=== PATIENT | male | born 1950 | race Caucasian/White ===

== ENCOUNTER → 2016-05-19 | Outpatient (CLI) | payer BC | END | disposition home or self-care (01) | LOC: C.PATHSPEC 17:24 | PROVIDERS: ATTEND Urology | DX: Z00.00 Encounter for general adult medical examination without abnormal findings (principal); R31.29 Other microscopic hematuria; N35.9 Urethral stricture, unspecified ==

== ENCOUNTER 2019-11-07 08:35 | Observation (INO) ==
--- NOTE | 2019-10-05 15:59 | PAT Medication Instructions ---
Medication Instructions Date of Service October 05, 2019 Home Medications meloxicam 15 mg PO QAM pantoprazole 40 mg PO QAM rosuvastatin 10 mg PO QAM ASK your surgeon for instructions meloxicam 15 mg PO QAM Take morning of surgery With a small sip of water, OTHERWISE NOTHING TO EAT OR DRINK AFTER MIDNIGHT: pantoprazole 40 mg PO QAM rosuvastatin 10 mg PO QAM Other Notes If you have any questions please call us at [phone] or [phone] or [phone] or [phone]
--- NOTE | 2019-10-10 10:05 | Anesthesiology Consultation ---
Date of Service October 10, 2019 Assessment & Plan (1) Encounter for pre-operative examination: Patient reported to PAT RN that he traveled in [place], returning on 10[place]06. He and his drove there, stayed in a cabin, wore masks and frequently washed hands. Did go to grocery store once in [place]. Due to the [facility] guidelines that recommend self-quarantining for 14 days after travel to specific states (including [place]), surgery was postponed so that patient able to quarantine. COVID testing to be done prior to surgery. Chart Review Chart Review: Acceptable Risk for Surgery and Patient NOT seen in Pre Admission Testing History Surgery Operation Date: 10/24/19 09:50 Proposed Procedures p Right Total Knee Arthroplasty - Joaquin Stevenson MD Height/Weight Height: 5 ft 7 in Weight: 92.986 kg Allergies Allergy/AdvReac Type Severity Reaction Status Date / Time tetracycline Allergy Mild Rash Verified 10/02/19 08:57 Medications Home Medications Medication Instructions Recorded Confirmed Last Taken meloxicam 15 mg PO QAM 10/02/19 10/02/19 Unknown pantoprazole 40 mg PO QAM 10/02/19 10/02/19 Unknown rosuvastatin 10 mg PO QAM 10/02/19 10/02/19 Unknown Past Medical History Medical History GERD (gastroesophageal reflux disease) History of stomach ulcers Hyperlipidemia Osteoarthritis Past Surgical History Surgical History History of arthroscopy of right shoulder Hx of colonoscopy Hx of tonsillectomy Hx of urethral stricture repair Social History Smoking Status: Never smoker Do You Dip or Chew Tobacco: No Hx Alcohol Use: Yes Alcohol type: wine alcohol intake frequency: 3 or more drinks per day Hx Substance Use: No substance use type: does not use Testing Laboratory Results Blood Type A Positive 10/08/19 09:00 Antibody Screen NEGATIVE 10/08/19 09:00 10/08/19 WBC: 5.20 H/H: 13.8/40.7 PLATELETS: 198 SODIUM: 142 POTASSIUM: 4.0 CHLORIDE: 111 CO2: 26 BUN: 26 CREATININE: 0.78 GLUCOSE: 98 PT: 10.7 PTT: 26 INR: 1.0 Electrocardiogram Date: 10/09/19 Findings: + SB @ (52bpm with 1st degree AV block) Chest X-Ray Date: 10/08/19 Findings: + NAD
--- NOTE | 2019-10-30 16:24 | History & Physical Report ---
Date of Service October 30, 2019 Assessment & Plan (1) Right knee DJD: Postoperative prescriptions for Percocet and Coumadin will be provided at discharge from the hospital. Anticipate discharge to home with home health services. Preoperative lab work, EKG, and chest x-ray have already been obtained. He will obtain nasal swab testing for COVID-19 prior to surgery. The patient is currently asymptomatic of any COVID-19 symptoms. He is aware of the risks associated with surgical intervention and COVID-19. Medical clearance has already been obtained from Dr. Ren. He already has access to a walker and cane. PDMP was checked and no records were found. History of Present Illness Chief Complaint: Right knee pain Primary Care Provider: Slick Ren This 68-year-old white male presents today with a longstanding history of right knee pain ongoing for several years. He is scheduled to undergo a right knee total knee arthroplasty on 11/07/2019. He has He initially managed it well with oral anti-inflammatories and viscosupplementation injections. Over the last year, symptoms have become worse. He is now having difficulty with ambulating any distance. No numbness or tingling. Occasional effusions. No catching or locking. Pain is worse with weightbearing. It is affecting his ADLs. Preoperative imaging has been obtained. He was previously scheduled for this procedure on 10/24/2019, but had to delay due to some travel obligations. He states he was very careful during his travels and packed his own food and slept in a tent. He denies any known exposure. Allergies Allergy/AdvReac Type Severity Reaction Status Date / Time tetracycline Allergy Mild Rash Verified 10/02/19 08:57 Home Medications Home Medications Medication Instructions Recorded Confirmed Type meloxicam 15 mg PO QAM 10/02/19 10/02/19 History pantoprazole 40 mg PO QAM 10/02/19 10/02/19 History rosuvastatin 10 mg PO QAM 10/02/19 10/02/19 History Past Med/Surg History Medical History GERD (gastroesophageal reflux disease) History of stomach ulcers Hyperlipidemia Osteoarthritis Surgical History History of arthroscopy of right shoulder Hx of colonoscopy Hx of tonsillectomy Hx of urethral stricture repair Family History Other Cancer Heart disease Prostate cancer Vision abnormalities Social History Smoking Status: Never smoker Second Hand Exposure: No; Hx Alcohol Use: Yes Alcohol type: wine Hx Substance Use: No Preferred Language: B[place]an Communication Ability: Effective Hearing Ability: Normal Welder 2Nd Shift Required: No Beliefs That Will Affect Care: None marital status: Current Living Situation: Spouse current occupational status: employed Feels Safe at Home: Yes Review of Systems Review of Systems: All systems reviewed & are unremarkable except as noted in HPI & below A total of 10 systems were reviewed. Physical Exam Physical Exam: Vitals: Height and weight are unchanged from previous exam. Height 170.4 cm, weight 96.1 kg. Temperature 36.3 oral, BP 140/78, pulse 65, O2 sat 98% on room air. General: Well-developed, well-nourished, elderly white male in no acute distress. Sitting on a bed. Alert and oriented. Skin: Warm and dry with good turgor. No rashes or lesions. No ecchymosis or erythema. No intraarticular effusion. HEENT: Normocephalic, atraumatic. Eyes: PERRLA, EOMI. Nares and oropharynx exam is deferred due to COVID precautions. Heart: RRR, no MGR. Lungs: Clear to auscultation bilaterally. No crackles, rhonchi or wheezing, good air movement. Abdomen: Mildly obese, bowel sounds present x4, soft, nontender. No organomegaly. No masses. Musculoskeletal: Right knee evaluation reveals no intraarticular effusion. No redness or warmth. He continues to have focal discomfort over the medial joint line. No lateral joint line discomfort. Stable collateral ligaments. No defect in the patellar tendon or quadriceps tendon. Full terminal extension. Flexion to 108-degrees. Strength is 5/5 with good quad tone. Ambulates with no appreciable limp at this time. Slight varus stance. Neurologic: Gross sensation is intact across both lower extremities by soft touch. Peripheral pulses are 2+. Results & Data Results & Data ([facility]) Diagnostic Findings Radiographic imaging previously obtained shows endstage DJD of the medial compartment. Periarticular osteophytes, subchondral sclerosis, and joint space narrowing are all present.
[~2019-11-07 08:35] MED LIST: BUPIVACAINE 0.5 % 5 MG/1 ML PF 10ML VIAL ONE; CEFAZOLIN 2000MG 2,000 MG/15 ML SYR IV SCH; LR 500ML BOLUS, THEN 15ML/HR IV SCH; LR 60ML/HR IV SCH; ROPIVACAINE 0.5% 5 MG/ML 30 ML VIAL ONE; ROPIVACAINE 0.5% HCL/PF 150 MG, BUPIVACAINE 0.5% MPF 30 ML, EPINEPHrine 0.15 MG, Ketoro... INFIL SCH; TRANEXAMIC ACID 1,000 MG **IV Pre-op IV SCH
--- NOTE | 2019-11-07 08:40 | History & Physical Bridge Note ---
Date of Service November 07, 2019 History & Physical Bridge Note I have examined the patient, reviewed the History & Physical and in the interval since the performance of the History & Physical I have noted the following changes of clinical significance: consent obtained/site identified/covid screen negative.no changes noted
[2019-11-07] MEDS ORDERED: MIDAZOLAM HCL 1 MG/ML 2ML VIAL ONE ×2 (10:00→11:17)
[2019-11-07] MEDS ORDERED: ePHEDrine sulfate 50 MG/ML AMP IV PRN (10:03)
[2019-11-07] MEDS ORDERED: ONDANSETRON INJ 2 MG/ML 2 ML VIAL IV PRN ×2 (10:03→13:59)
[2019-11-07] MEDS ORDERED: HYDROmorphone INJ 1 MG/ML SYRINGE IV PRN (10:03)
[2019-11-07] MEDS ORDERED: KETOROLAC 30 MG/ML VIAL IV PRN (10:03)
[2019-11-07] MEDS ORDERED: ATROPINE SULFATE 0.1 MG/ML 10ML SYR IV PRN (10:03)
[2019-11-07] MEDS ORDERED: ORTHO JOINT ANESTHETIC ONE (10:48)
[2019-11-07] MEDS ORDERED: PROPOFOL IV EMULSION 10 MG/ML 20 ML VIAL IV ONE (10:52)
[2019-11-07] MEDS ORDERED: LIDOCAINE HCL 2% 2 ML VIAL/AMP(20MG/ML) INFIL ONE (11:18)
--- NOTE | 2019-11-07 12:44 | Post Operative Brief Note ---
Immediate Post Op Note v1 Date of Surgery November 07, 2019 Pre & Post Diagnosis Operation Date: 11/07/19 10:40 Pre-Op Diagnosis: Right Knee Degenerative Joint Disease Post-Op Diagnosis: Right Knee Degenerative Joint Disease I identified the patient and participated in the time-out.: Yes Procedure Operation Date: 11/07/19 10:40 Actual Procedures p Right Total Knee Arthroplasty(Right) - Joaquin Stevenson MD Surgeon Joaquin Stevenson MD Enterprise Resource Planner igor/concha/dedrick Estimated Blood Loss 50 Findings Consistent with Post-Op Diagnosis
--- NOTE | 2019-11-07 12:49 | Operative Report ---
Post Operative Report Pre & Post Diagnosis Operation Date: 11/07/19 10:40 Pre-Op Diagnosis: Right Knee Degenerative Joint Disease Post-Op Diagnosis: Right Knee Degenerative Joint Disease I identified the patient and participated in the time-out.: Yes Procedure Operation Date: 11/07/19 10:40 Actual Procedures p Right Total Knee Arthroplasty(Right) - Joaquin Stevenson MD Surgeon SERINA Stevenson MD Loan Documentation Specialist igor/concha/dedrick Estimated Blood Loss 50 Findings Consistent with Post-Op Diagnosis Specimens see operative report Drains none Complications none Disposition Accompanied Patient To Recovery: Yes Disposition: Recovery Room Indications This 68-year-old white male presented to the office with complaints of intractable right knee pain. He had tried conservative care measures without improvement. He elected to proceed with surgical intervention after being educated about potential risks and outcomes. Preoperative imaging was obtained. Description of Procedure Patient was administered a spinal anesthetic and then taken to the operating room where he was given sedation. He was prepped and draped in the usual sterile fashion. Please see Dr. Stevenson's operative report for specifics of the procedure. I was present for the entire case from initial patient positioning through final wound closure. Assistance was provided in tissue retraction, hemostasis, trial implant placement, final implant placement, and final wound closure. Patient was taken to the recovery room in satisfactory condition. I attest to the content of the Intraoperative Record and any orders documented therein. Any exceptions are noted below.
--- NOTE | 2019-11-07 12:56 | Operative Report (OR) ---
DATE OF OPERATION: 11/07/2019 SURGEON: Joaquin Stevenson MD. CLINICAL RESEARCH NURSE: Ericka. SECOND CLINICAL RESEARCH NURSE: Mitchell Smith PA-C THIRD CLINICAL RESEARCH NURSE: Stephanie. PREOPERATIVE DIAGNOSES: Osteoarthritis with varus deformity, right knee. POSTOPERATIVE DIAGNOSES: Osteoarthritis with varus deformity, right knee. OPERATION PERFORMED: Cemented right total knee replacement. SUMMARY OF IMPLANTS: Size 4 right narrow femur, size 4 mobile bearing tray, size 41 patella, 2 bags of Palacos G cement. ESTIMATED BLOOD LOSS: 50 mL. CRYSTALLOID: Per anesthesia. BONE PATHOLOGY: Pending. DEEP VENOUS THROMBOSIS PROPHYLAXIS: Per protocol. PERIOPERATIVE SITUATION: Medically cleared male with intractable knee pain, has failed conservative management including multiple rounds of viscosupplementation and steroid injections. At this point in time, wants to proceed with surgical treatment. He understands the risks and consequences. Please see consent. DESCRIPTION OF PROCEDURE: After the patient appropriately identified, site verified, consent verified, antibiotics confirmed as being given, the right lower extremity was prepped and draped in usual routine fashion. A midline exposure was utilized. Parapatellar arthrotomy performed. Synovectomy completed, osteophytes resected. Distal femur entered. Cruciates resected. Menisci resected after the tibia was subluxated. Distal femur then resected 12 mm, proximal tibia 4 mm, the extension gap was excellent. Femur was then sized to a 4 after the extension gap was checked. Appropriate cutting block applied. The anterior, posterior condylar and chamfer cuts were made. Spacer gap for flexion gap was excellent. The posterior capsule was then injected. The box cut was then made and the size 4 fit well. The tibia was then broached and reamed to a size 4, 10 mm spacer, the knee had excellent range of motion from 0-125 degrees with good mid range stability. The patella was then sized to a 41, it was resected leaving about 15 mm and then the seating holes made and the trial tracked well. The knee was then injected with the remaining Orthomix. All trial implants were then removed. The knee copiously irrigated with Betadine and Pulsavac and then permanent cemented into position, tibia, femur and patella. After 12 minutes, the tourniquet deflated. Minor bleeding points controlled with electrocautery. After 14 minutes, the knee flexed. No major cement removal required, no major bleeding encountered. Some bone wax was placed on the cut surfaces of the femur, so that it would not leak so much. The wound was then irrigated one final time after the trial implant was removed, the permanent liner seated. The knee reduced and then closed at 40 degrees of flexion with #2 Vicryl, 2-0 Vicryl and stainless steel clips. Appropriate dressing applied. The patient was transferred to recovery room in satisfactory condition having tolerated the procedure well. I attest to the content of the Intraoperative Record and any orders documented therein. Any exceptions are noted below. NATACHAD
--- NOTE | 2019-11-07 12:59 | XRay Report ---
TWO VIEWS RIGHT KNEE CLINICAL HISTORY: Postoperative examination. FINDINGS: AP and crosstable lateral portable views of the right knee are obtained. A right knee arthr oplasty is in near anatomic alignment. There has been undersurface remodeling of the patella. No acut e fracture is seen. There are expected postoperative changes around the knee including skin clips, s oft tissue edema, and subcutaneous gas. IMPRESSION: Expected postoperative changes status post right knee arthroplasty. No acute fracture is seen. ACT 112: Negative or not required by law. Electronically signed by: Ryder Villarreal M.D. 11/07/2019 12:57 PM
--- NOTE | 2019-11-07 12:59 | Operative Report ---
Post Operative Report Pre & Post Diagnosis Operation Date: 11/07/19 10:40 Pre-Op Diagnosis: Right Knee Degenerative Joint Disease Post-Op Diagnosis: Right Knee Degenerative Joint Disease I identified the patient and participated in the time-out.: Yes Procedure Operation Date: 11/07/19 10:40 Actual Procedures p Right Total Knee Arthroplasty(Right) - Joaquin Stevenson MD Surgeon Joaquin Stevenson MD Transfer Station Attendant igor/concha/dedrick Estimated Blood Loss 50 Findings Consistent with Post-Op Diagnosis Specimens none Anesthesia Type Spinal Complications none Disposition Accompanied Patient To Recovery: Yes Disposition: Recovery Room Description of Procedure As per 's note, I assisted in prepping and draping the patient, in certain parts of the procedure, instruments handling and wound closure. I attest to the content of the Intraoperative Record and any orders documented therein. Any exceptions are noted below.
[2019-11-07] MEDS ORDERED: VANCOMYCIN HCL 1,500 MG in SODIUM CHLORIDE 0.9% 500 ML IV SCH (13:00)
[2019-11-07] MEDS ORDERED: VANCOMYCIN HCL 1,500 MG in SODIUM CHLORIDE 0.9% 250 ML IV SCH (13:00)
--- NOTE | 2019-11-07 13:22 | Anesthesiology Progress Note ---
Date of Service November 07, 2019 Anesthesia Post Procedure Vital Signs Vital Signs: Temp Pulse Pulse Resp BP BP Pulse Ox 11/07/19 13:15 36.4 C L 56 L 14 141/83 H 98 11/07/19 13:05 54 L 14 129/91 99 11/07/19 12:55 61 17 133/87 100 11/07/19 12:47 36.6 C 64 13 139/79 100 11/07/19 09:39 37 C 61 20 150/85 H 98 11/07/19 09:14 37 C 61 20 155/89 H 96 Transfer of Care Handoff Completed per policy Notes Mental Status: alert / awake / arousable Patient Amnestic to Procedure: Yes Nausea / Vomiting: adequately controlled Pain: adequately controlled Airway Patency, RR, SpO2: stable & adequate BP & HR: stable & adequate Hydration State: stable & adequate Neuraxial Anesthesia: was administered and sensory block is resolving Anesthetic Complications: no major complications apparent
[2019-11-07] MEDS ORDERED: DiphenhydrAMINE HCL 50 MG/ML VIAL IV PRN (13:59)
[2019-11-07] MEDS ORDERED: NALOXONE HCL 0.4 MG/1 ML VIAL/CARP IV PRN (13:59)
[2019-11-07] MEDS ORDERED: MAGNESIUM HYDROXIDE SUSP 30 ML UDC PO PRN (13:59)
[2019-11-07] MEDS ORDERED: TAMSULOSIN HCL 0.4 MG CAP PO PRN (13:59)
[2019-11-07] MEDS ORDERED: METOCLOPRAMIDE HCL INJ 5 MG/ML 2 ML VIAL IV PRN (13:59)
[2019-11-07] MEDS ORDERED: HYDROmorphone INJ 0.5 MG/0.5 ML SYR IV PRN (13:59)
[2019-11-07] MEDS ORDERED: ALUMINUM/MAGNESIUM SUSP 30 ML UDC PO PRN (13:59)
[2019-11-07] MEDS ORDERED: bisacodyL 10 MG SUPP PR PRN (13:59)
[2019-11-07] MEDS ORDERED: OXYCODONE HCL IR 5 MG TAB (IMMEDIATE RELEASE) PO PRN (13:59)
--- NOTE | 2019-11-07 14:13 | Progress Notes ---
DATE: 11/07/2019 Postop check status post right total knee replacement. The patient did well in surgery. He has no issues. Neurovascular check is limited by his spinal, but it is wearing off. Postop x-rays look excellent. Wound dressing clean, dry and intact. Calves are nontender. ASSESSMENT: Status post right total knee replacement. Continue with care pathway. Potential discharge tomorrow if he does well tonight.
[2019-11-07] MEDS ORDERED: SODIUM CHLORIDE 0.9% 1000ML 1,000 ML IV SCH (14:15)
[2019-11-07] MEDS: KETOROLAC TROMETHAMINE 15 MG/ML VIAL IV SCH ×2 (15:33→21:42)
[2019-11-07] MEDS: ACETAMINOPHEN 500 MG TAB PO SCH ×2 (15:33→21:42)
[2019-11-07] MEDS: ORTHO WARFARIN NOMOGRAM SCH (15:49)
[2019-11-07] MEDS ORDERED: WARFARIN SOD 5 MG TAB PO SCH (16:00)
--- NOTE | 2019-11-07 16:10 | Discharge Summary (DS) ---
CHIEF COMPLAINT: Right knee pain. HISTORY OF PRESENT ILLNESS: The patient underwent elective right total knee replacement. Hospital course has been uneventful to date. He is tolerating things well. His postop x-rays look excellent. Medication reconciliation sheet significant for meloxicam, pantoprazole and rosuvastatin; please see medication reconciliation sheet. PAST MEDICAL HISTORY: Remarkable for GERD, history of stomach ulcers, hyperlipidemia, osteoarthritis. PAST SURGICAL HISTORY: Remarkable for shoulder arthroscopy, colonoscopy, tonsillectomy, ureteral stricture repair. FAMILY HISTORY: Remarkable for cancer, heart disease, prostate cancer and vision abnormalities. SOCIAL HISTORY: Reveals he is . Does not smoke. Social alcohol. Speaks Chinese, feels safe at home. Is ; spouse lives with him. REVIEW OF SYSTEMS: Reveals no chest pain, shortness of breath, fever, chills, nausea, vomiting or headache. Postop x-rays look excellent. ASSESSMENT: Status post right total knee replacement. Plan is for discharge to home tomorrow with home services if he does well overnight.
[2019-11-07] MEDS: ASCORBIC ACID 500 MG TAB PO SCH (16:36)
[2019-11-07] MEDS: FERROUS GLUCONATE 324 MG TAB PO SCH (16:37)
[2019-11-07] MEDS: CEFAZOLIN 2000MG 2,000 MG/15 ML SYR IV SCH (18:49)
[2019-11-07] MEDS ORDERED: TRANEXAMIC ACID / 0.7% NACL 1,000 MG/100 ML BAG IV SCH (19:00)
[2019-11-07] MEDS ORDERED: SENNA 8.6 MG TAB PO SCH (21:00)
[2019-11-07] MEDS: DOCUSATE SODIUM 100 MG CAP PO SCH (21:43)
[2019-11-08] MEDS: KETOROLAC TROMETHAMINE 15 MG/ML VIAL IV SCH ×2 (03:07→08:37)
[2019-11-08] MEDS: CEFAZOLIN 2000MG 2,000 MG/15 ML SYR IV SCH (03:08)
[2019-11-08] MEDS: ACETAMINOPHEN 500 MG TAB PO SCH (05:57)
[2019-11-08 06:38] LABS: Hematocrit (blood only) 37.6 % (42-52); Hemoglobin 12.3 g/dL (14.0-18.0); Mean Corpuscular Hgb Conc 32.7 g/dL (32-36); Mean Corpuscular Volume 88.7 fL (80-100); Mean Platelet Volume 10.9 fL (7.4-10.4); Platelet Count 181 K/uL (130-400); RDW Coefficient of Variation 12.7 % (11.5-14.5); RDW Standard Deviation 40.9 fL (36.4-46.3); Red Blood Count 4.24 M/uL (4.7-6.1); White Blood Count 15.08 K/uL (4.8-10.8)
[2019-11-08 06:44] LABS: INR 1.1 (0.9-1.1); Prothrombin Time 11.7 Seconds (9.0-12.0)
--- NOTE | 2019-11-08 07:14 | Progress Notes ---
DATE: 11/08/2019 SUBJECTIVE: Postop day #1 postop check status post right total knee replacement. The patient is doing well. Pain is well managed. Denies any chest pain, shortness of breath, fever, chills, nausea, vomiting, or headache. OBJECTIVE: Vital signs are stable. He is afebrile. LABORATORY DATA: Hematocrit stable at 37.6. INR pending. Electrolytes pending. ASSESSMENT AND PLAN: Doing well. Discharge to home today after PT, OT and dressing change. Coumadin dose per nomogram.
[2019-11-08] MEDS ORDERED: WARFARIN SOD 5 MG TAB PO ONE (07:15)
[2019-11-08 07:17] LABS: BUN Creatinine Ratio 19.3 (10-20); Calcium 8.7 mg/dl (8.5-10.1); Creatinine Clr Calc Pharmacy 106.2 ml/min; Est GFR (African American) 110.5; Est GFR (Non-African American) 95.3; Potassium 3.5 mmol/L (3.5-5.1)
[2019-11-08] MEDS: ORTHO WARFARIN NOMOGRAM SCH (07:19)
[2019-11-08] MEDS ORDERED: dexAMETHasone 10 MG in SYRINGE 0 ML IV SCH (08:00)
[2019-11-08] MEDS: DOCUSATE SODIUM 100 MG CAP PO SCH (08:36)
[2019-11-08] MEDS: FERROUS GLUCONATE 324 MG TAB PO SCH (08:37)
[2019-11-08] MEDS: ASCORBIC ACID 500 MG TAB PO SCH (08:38)
[2019-11-08] MEDS ORDERED: PANTOprazole 40 MG TAB PO SCH (09:00)
[2019-11-08] MEDS ORDERED: MULTIVITAMIN TAB PO SCH (09:00)
[2019-11-08] MEDS ORDERED: ROSUVASTATIN CALCIUM 10 MG TAB PO SCH (09:00)
--- NOTE | 2019-11-08 22:51 | Orthopedic Progress Note ---
Date of Service November 08, 2019 Assessment & Plan (1) Status post total right knee replacement using cement: Anticipate discharge to home today after PT/OT. Arrangements have been made for home health nursing. Coumadin today per nomogram. Prescriptions were sent to his pharmacy for Percocet and Coumadin. Written discharge instructions were provided. Postsurgical dressing was changed today by me. Continue the knee immobilizer until Tuesday morning. Continue CELSO hose for the next 6 weeks. Follow-up in the office on November 21 for staple removal as scheduled. Admission and Anticipated Discharge Date Admission Date: November 07, 2019 Subjective Patient is seen in his room this morning. He has already finished breakfast. He is sitting in a chair. He states he did not rest much overnight, but feels fairly well. He denies any significant knee pain. No chest pain, shortness of breath, nausea, vomiting, or abdominal pain. No numbness or tingling. He has already been to the bathroom by himself. Knee immobilizer is in place. He desires to go home today. Review of Systems Review of Systems: Unchanged from yesterday. Physical Exam Physical Exam: General: Well-developed, well-nourished, middle-aged white male, in no acute distress. Sitting in a chair. Alert and oriented. Skin: Warm and dry with good turgor. No rashes. Postoperative dressings are in place on the right leg. Upon removal, postsurgical wound is present. Sascha are intact. No active bleeding. Scant dried blood on her dressings. Expected postoperative edema. No ecchymosis. Musculoskeletal: Patient is able to perform a straight leg raise. Intact motor function to his ankle and toes. Full terminal extension. Flexion was only checked to about 50 degrees. Neurologic: Gross sensation is intact across his lower leg and ankle by soft touch. Peripheral pulses are 2+. Results & Data ([facility]) Vital Signs (Past 12 Hours) Vital Signs Temp Pulse Resp BP Pulse Ox 11/08/19 07:29 36.5 C 54 L 16 162/90 H 96 11/08/19 03:13 36.7 C 53 L 16 142/82 H 97 11/07/19 23:05 36.8 C 59 L 16 137/70 96 Laboratory Results H&H obtained this morning are 12.3 and 37.6. Elevated white count of 15.0, likely related to his surgery and steroid dose. INR is 1.1. PRP is unremarkable.
== END 2019-11-08 11:11 | disposition home health service (06) ==
LOC: 3E 08:35 → ASU 08:35

== ENCOUNTER 2019-11-13 10:23 | Observation (INO) ==
[2019-11-13] MEDS ORDERED: SODIUM CHLORIDE 0.9% 500 ML IV SCH (10:45)
--- NOTE | 2019-11-13 10:50 | Emergency Department Note ---
Impression & Plan Atrial fibrillation with RVR, Syncope, Supratherapeutic INR, Dehydration ED Provider Note NAME: KWADWO PAIZ AGE: 68 SEX: M : 1950 ARRIVES VIA: Walk-In INFORMANT: Patient, ED PROVIDER(S): Silvano Perez MD Chief Complaint: Syncope, abnormal EKG HPI: Patient does present after he gotten up this morning felt well eats breakfast and was doing his morning routine exercises when he took a shower subsequently felt very lightheaded and warm. The patient felt as though his Yasmeen-Washta he sat down and passed out. No seizure-like activity and the patient currently denies any chest pains, shortness of breath, nausea or vomiting. Patient does state that in the morning sometimes he does feel some occasional heaviness in the chest. The patient denies any cough, fevers, chills. The patient did have a recent right total knee arthroplasty completed with Dr. starkey on November 08. The patient recently had a dressing change which was unremarkable this morning. Patient does occasionally drink wine but denies any tobacco use. Patient states that his appetite is been appropriate eating and drinking normally with normal urination and bowel movements. Patient denies any change in any lower extremity swelling. The patient did state that he did drive approximate 5000 miles 1 month ago. The patient did recently stop taking a statin medication due to concerns for some muscle cramps in the b ilateral lower extremities. Patient currently is on Coumadin postoperatively for his knee replacement no other medication changes besides that as well as pain medication. ROS: See HPI for pertinent positives and negatives. A total of 10 systems were reviewed and otherwise negative. Past medical history: See below Surgical history: See below Social history: See below Physical Exam: GENERAL: Well appearing, well nourished, NAD, non-toxic. EYE EXAM: Normal conjunctiva. PERRL, no anisocoria and EOM's grossly intact w/o pain. NECK: Supple, no nuchal rigidity, no adenopathy, non-tender. No signs of meningismus. LUNGS: Clear to auscultation. Normal chest wall mechanics. HEART: Irregularly irregular, no MRG. ABDOMEN: Abdomen soft, non-tender, normo-active bowel sounds, no masses, no rebound or guarding. BACK: No CVA TTP. SKIN: No rashes and no bruising. UPPER EXTREMITIES: Upper extremities are grossly normal. LOWER EXTREMITIES: Right knee wrapped and bandaged, negative Homans sign bila terally. Neurovascular intact bilateral lower extremities. NEURO EXAM: A&O x3, cranial nerves II-XII grossly intact, normal speech, moves all 4 extremities on command w/o issue. Differential diagnoses: Vasovagal event, dehydration, infection, hypoglycemia, electrolyte abnormalities, cardiac sources, intracerebral event, pulmonary embolism, seizure, toxicologic, neurologic, as well as other pathologies. Course: Patient was seen and evaluated the bedside. Full history physical exam was perf ormed. EKG: Indication: Syncope, lightheadedness Irregularly irregular with a rate of 121, normal QRS, left axis deviation, machine read as A. fib with RVR perhaps buried P wave in the QRS may be AVNRT vs flutter. Imaging Studies: Radiology results as stated below per my review in the radiologist's interpretation: SINGLE VIEW CHEST CLINICAL HISTORY: Generalized weakness. Dizziness and vomiting. Syncope. FINDINGS: An AP, portable, upright chest radiograph is compared to study dated 10/08/2019. The examination is degraded by portable technique and apical lordotic positioning. The heart is top normal for projection noting atherosclerotic calcification of the thoracic aorta. The pulmonary vasculature is noncongested. Scarring/atelectasis is noted at the left lung base. There is no airspace consolidation or large pleural effusion. No pneumothorax is seen. The bony thorax is grossly intact. IMPRESSION: No active disease in the chest. ACT 112: Negative or not required by law. Electronically signed by: Kwadwo Villarreal M.D. 11/13/2019 11:43 AM Dictated: 11/13/19 1142 Transcribed: 11/13/19 1142 Cardiac monitoring: An order was placed for continuous cardiac monitoring. The monitor shows a rate of 105 with irregularly irregular rhythm. MDM: Patient does present with concern for syncope. Blood work is obtained along with an EKG troponin chest x-ray. Patient's EKG shows A. fib versus flutter. I did discuss this possibility of AVNRT with the on-call medical biller/coder Dr. Campos but he believes this is more of an atrial flutter versus atrial fibrillation. Patient's heart rate did improve with IV fluids alone. The patient is supratherapeutic on his INR with an INR of greater than 5. Chest x-ray is unremarkable. Given the patient's new onset of atrial fibrillation we discussed additional medication management as well as necessity for continued chronic anticoagulant coagulation given the new onset of his irregular heartbeat. I did speak with the on-call hospitalist Dr. Cleaning who agreed to further evaluate treat the patient. The patient was admitted to the medicine service. I considered the possibility of PE but I do not believe this to be likely as the patient does not have any calf pain. The patient did have a recent procedure for the patient supratherapeutic on the INR and the patient denies any chest pains or active shortness of breath at the bedside. The patient did state that when he awakens each morning does have some chest heaviness but is not currently present. Do not believe the patient requires CT of the head as patient has no headache and had no head injury. Past Med/Surg History Medical History (Updated 11/13/19 @ 12:47 by Darvin Cleaning MD) GERD (gastroesophageal reflux disease) History of stomach ulcers Hyperlipidemia Osteoarthritis Surgical History History of arthroscopy of right shoulder Hx of colonoscopy Hx of tonsillectomy Hx of urethral stricture repair Status post total right knee replacement using cement Family History Other Cancer Heart disease Prostate cancer Vision abnormalities Social History Smoking Status: Never smoker Second Hand Exposure: No; Do You Dip or Chew Tobacco: No; Tobacco Cessation Education Requested by Patient: No Hx Alcohol Use: Yes Alcohol type: wine Hx Substance Use: No Preferred Language: Georgian Communication Ability: Effective Hearing Ability: Normal 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 Beliefs That Will Affect Care: None marital status: Current Living Situation: Spouse current occupational status: employed Other Information That Helps Us Care for You: No Feels Safe at Home: Yes Safety Concerns: Feels Safe At This Time Allergies Allergies Allergy/AdvReac Type Severity Reaction Status Date / Time tetracycline Allergy Mild Rash Verified 11/13/19 10:53 Home Meds Home Medications Medication Instructions Recorded Confirmed pantoprazole 40 mg PO QAM 10/02/19 11/13/19 rosuvastatin 10 mg PO Q2D 10/02/19 11/13/19 acetaminophen [Tylenol] 325 mg PO QID PRN 11/13/19 11/13/19 coQ10 (ubiquinol) 200 mg PO QAM 11/13/19 11/13/19 meloxicam 15 mg PO QAM 11/13/19 11/13/19 warfarin 4 mg PO QDD 11/13/19 11/13/19 Previous Rx's Medication Instructions Recorded oxycodone-acetaminophen [Percocet] 2 tab PO Q4H PRN #30 tab 11/08/19 Results & Data (ED) Vital Signs Vital Signs - 24 hr 11/13/19 10:26 11/13/19 10:42 11/13/19 10:47 Temperature 36.9 C Temperature Source Oral Pulse Rate 114 H 114 H 118 H Pulse Rate from SpO2 Sensor 100 H Respiratory Rate 20 20 19 Respiratory Effort / Characteristics Non-Labored Respiratory Depth Normal Blood Pressure 134/94 155/91 H Blood Pressure Mean 107 109 Pulse Oximetry 98 92 Oxygen Delivery Method Room Air Room Air Sepsis Recent Fever Within 48 Hours No Sepsis New/Unexplained Change in Mental Status N/A Sepsis Action Taken by Nursing No Action Required Home Medications Current Medication List: was personally reviewed by me Laboratory Data Attestation: I reviewed the patient's lab results. Result diagrams: 11/13/19 10:43 11/13/19 10:43 Lab Results 11/13/19 11/13/19 11/13/19 Range/Units 10:43 10:43 10:43 WBC 10.43 (4.8-10.8) K/uL RBC 4.65 L (4.7-6.1) M/uL Hgb 13.6 L (14.0-18.0) g/dL Hct 41.7 L (42-52) % MCV 89.7 (80-100) fL MCH 29.2 (25-34) pg MCHC 32.6 (32-36) g/dL RDW Std Deviation 41.9 (36.4-46.3) fL RDW Coeff of Marito 12.7 (11.5-14.5) % Plt Count 314 (130-400) K/uL MPV 10.1 (7.4-10.4) fL Immature Gran % (Auto) 0.3 % Neut % (Auto) 72.8 % Lymph % (Auto) 16.5 % [place] % (Auto) 10.0 % Eos % (Auto) 0.3 % Baso % (Auto) 0.1 % Neut # (Auto) 7.60 H (1.4-6.5) K/uL Lymph # (Auto) 1.72 (1.2-3.4) K/uL [place] # (Auto) 1.04 H (0.11-0.59) K/uL Eos # (Auto) 0.03 (0-0.5) K/uL Baso # (Auto) 0.01 (0-0.2) K/uL Immature Gran # (Auto) 0.03 H (0.00-0.02) K/uL PT 51.8 H (9.0-12.0) Seconds INR 5.4 H (0.9-1.1) Sodium 143 (136-145) mmol/L Potassium 3.7 (3.5-5.1) mmol/L Chloride 107 (98-107) mmol/L Carbon Dioxide 29 (21-32) mmol/L Anion Gap 6.0 (3-11) BUN 27 H (7-18) mg/dl Creatinine 0.86 (0.6-1.4) mg/dl Est Cr Clr Drug Dosing 90.7 ml/min Est GFR ( Amer) 103.3 Est GFR (Non-Af Amer) 89.1 BUN/Creatinine Ratio 31.4 H (10-20) Glucose 116 H (70-99) mg/dl Calcium 9.4 (8.5-10.1) mg/dl Phosphorus 2.5 (2.5-4.9) mg/dl Magnesium 2.3 (1.8-2.4) mg/dl Total Bilirubin 0.7 (0.2-1) mg/dl AST 51 H (15-37) U/L ALT 114 H (12-78) U/L Alkaline Phosphatase 142 H (45-117) U/L Troponin I < 0.015 (0-0.045) ng/ml Total Protein 7.3 (6.4-8.2) gm/dl Albumin 3.3 L (3.4-5.0) gm/dl Globulin 4.0 (2.5-4.0) gm/dl Albumin/Globulin Ratio 0.8 L (0.9-2) TSH 1.480 (0.300-4.500) uIu/ml Administered Medications Discontinued Medications Acetaminophen (Acetaminophen 500 Mg Tab) 1,000 mg PO NOW STA Stop: 11/13/19 11:25 Last Admin: 11/13/19 11:37 Dose: 1,000 mg Documented by: [id number] Sodium Chloride (Nss) 500 mls @ 999 mls/hr IV .Q31M JEREMY Stop: 11/13/19 11:15 Last Infusion: 11/13/19 11:51 Dose: 0 mls/hr Documented by: [id number] Admin: 11/13/19 10:48 Dose: 999 mls/hr Documented by: [id number] Discharge Plan Visit Data Chief Complaint: Referred by Doctor Stated Complaint: ABNORMAL EKG ED Provider: Silvano Perez Discharge Problem: Atrial fibrillation with RVR, Syncope, Supratherapeutic INR, Dehydration Forms Stand Alone Forms: [facility] Prescriptions Prescriptions: No Action acetaminophen [Tylenol] 325 mg Tablet 325 mg PO QID PRN (Reason: Pain) RF: 0 meloxicam 15 mg tablet 15 mg PO QAM RF: 0 coQ10 (ubiquinol) 200 mg Capsule 200 mg PO QAM RF: 0 warfarin 2 mg tablet 4 mg PO QDD RF: 0 pantoprazole 40 mg Tablet,Delayed Release (Dr/Ec) 40 mg PO QAM RF: 0 rosuvastatin 10 mg Tablet 10 mg PO Q2D RF: 0 oxycodone-acetaminophen [Percocet] 5-325 mg tablet 2 tab PO Q4H PRN (Reason: pain) Qty: 30 RF: 0
[2019-11-13 10:55] LABS: Basophils # (auto) 0.01 K/uL (0-0.2); Basophils % (auto) 0.1 %; Eosinophils # (auto) 0.03 K/uL (0-0.5); Eosinophils % (auto) 0.3 %; Hematocrit (blood only) 41.7 % (42-52); Hemoglobin 13.6 g/dL (14.0-18.0); Immature Granulocytes # (auto) 0.03 K/uL (0.00-0.02); Immature Granulocytes % (auto) 0.3 %; Lymphocytes # (auto) 1.72 K/uL (1.2-3.4); Lymphocytes % (auto) 16.5 %; Mean Corpuscular Hemoglobin 29.2 pg (25-34); Mean Corpuscular Hgb Conc 32.6 g/dL (32-36); Mean Corpuscular Volume 89.7 fL (80-100); Mean Platelet Volume 10.1 fL (7.4-10.4); Monocytes # (auto) 1.04 K/uL (0.11-0.59); Neutrophils % (auto) 72.8 %; Platelet Count 314 K/uL (130-400); RDW Coefficient of Variation 12.7 % (11.5-14.5); RDW Standard Deviation 41.9 fL (36.4-46.3); Red Blood Count 4.65 M/uL (4.7-6.1); White Blood Count 10.43 K/uL (4.8-10.8)
[2019-11-13 11:13] LABS: INR 5.4 (0.9-1.1); Prothrombin Time 51.8 Seconds (9.0-12.0)
[2019-11-13 11:16] LABS: Alanine Aminotransferase 114 U/L (12-78); Albumin Level 3.3 gm/dl (3.4-5.0); Aspartate Aminotransferase 51 U/L (15-37); BUN Creatinine Ratio 31.4 (10-20); Blood Urea Nitrogen 27 mg/dl (7-18); Calcium 9.4 mg/dl (8.5-10.1); Carbon Dioxide 29 mmol/L (21-32); Chloride 107 mmol/L (98-107); Creatinine Clr Calc Pharmacy 90.7 ml/min; Est GFR (African American) 103.3; Est GFR (Non-African American) 89.1; Glucose 116 mg/dl (70-99); Magnesium 2.3 mg/dl (1.8-2.4); Potassium 3.7 mmol/L (3.5-5.1); Sodium 143 mmol/L (136-145)
[2019-11-13] MEDS ORDERED: ACETAMINOPHEN 500 MG TAB PO STA (11:24)
[2019-11-13 11:27] LABS: Albumin Globulin Ratio 0.8 (0.9-2); Alkaline Phosphatase 142 U/L (45-117); Bilirubin,Total 0.7 mg/dl (0.2-1); Phosphorus 2.5 mg/dl (2.5-4.9); Total Protein 7.3 gm/dl (6.4-8.2); Troponin I < 0.015 ng/ml (0-0.045)
--- NOTE | 2019-11-13 11:45 | XRay Report ---
SINGLE VIEW CHEST CLINICAL HISTORY: Generalized weakness. Dizziness and vomiting. Syncope. FINDINGS: An AP, portable, upright chest radiograph is compared to study dated 10/08/2019. The examinat ion is degraded by portable technique and apical lordotic positioning. The heart is top normal for pr ojection noting atherosclerotic calcification of the thoracic aorta. The pulmonary vasculature is non congested. Scarring/atelectasis is noted at the left lung base. There is no airspace consolidation or large pleural effusion. No pneumothorax is seen. The bony thorax is grossly intact. IMPRESSION: No active disease in the chest. ACT 112: Negative or not required by law. Electronically signed by: Ryder Villarreal M.D. 11/13/2019 11:43 AM
--- NOTE | 2019-11-13 11:52 | History & Physical Report ---
Date of Service November 13, 2019 Assessment & Plan (1) Atrial fibrillation with RVR: New onset with no prior history. TSH was normal in the ED. The patient does note he drinks 2-3 glasses of wine most evenings. He is not sure if the glasses are a standard 4.5 oz glass or slightly larger. No other noted symptoms to indicate another inciting factor. CHADs-Vasc of 1, giving him 0.6% stroke risk per year. - Echo ordered - Cardiology consulted - Trend troponins to be sure the event this morning wasn't an NSTEMI; certainly no ongoing chest pain or EKG changes to indicate ongoing ischemia - Will give Toprol XL 25 mg on admission -> His rates in the ED are ~100 - 110 bpm, so he is already almost self-rate controlled. - Metoprolol IV for HR > 120 - Monitor on tele - Already on anticoagulation for DVT ppx with INR of 5.4. Holding warfarin at this time. Can discuss ongoing anticoagulation for his afib. (2) Syncope: Possibly vasovagal vs. an episode of RVR that reduced cerebral perfussion. No signs/symptoms of CVA or seizure. - Monitor on telemetry - Otherwise investigate as above (3) Elevated liver enzymes: AST/ALT were 51/114 on admission without known inciting cause. Alk phos of 142 could be explained by recent surgery. - Trend (4) GERD (gastroesophageal reflux disease): Could have contributed to "heaviness" sensation he has felt the last 2 nig hts while lying down. - Continue PPI (5) Hyperlipidemia: - Continue statin (6) Right knee DJD: S/p right TKA with Dr. Stevenson on 11/06. No operative complications. - On warfarin for DVT ppx. INR presently 5.4. (7) DVT prophylaxis: INR is 5.4. - Monitor History of Present Illness Primary Care Provider: Slick Ren 68yo M w/ hx of GERD and DJD who presents with new-onset atrial fibrillation. The patient had a right TKA with Dr. Stevenson on 11/07/2019. The procedure went well, and he was discharged home several days later. He was sent home on warfarin for DVT prophylaxis. The last 2 nights, Mr. Lundberg has noted a "heaviness" in his chest for approx. 30 minutes. This only occurs after he has laid down to go to bed and is drifting off to sleep. It has not come about with any of his exercises for his knee or other times of day. This morning, he did his leg exercises for his knee which he reports are "moderately" painful. He had a normal breakfast, and got into the shower. He notes he felt a bit hot and a bit tired during the shower. After getting out of the shower, he felt dizzy and nauseated. He sat down in his walker (which he is using due to his recent surgery) and called for his . With his present, he passed out for approx. 1-3 minutes. He did not fall out of his walker due to his holding him. He did not have any shaking, jaw/tongue movements, or other indications of seizure that his noted. After coming back to consciousness, he was essentially alert and oriented without confusion. He denies any chest pressure or palpitations during this episode or in the last few days. At present, he feels basically back to baseline. Allergies Allergy/AdvReac Type Severity Reaction Status Date / Time tetracycline Allergy Mild Rash Verified 11/13/19 10:53 Home Medications Home Medications Medication Instructions Recorded Confirmed Type pantoprazole 40 mg PO QAM 10/02/19 11/13/19 History rosuvastatin 10 mg PO Q2D 10/02/19 11/13/19 History oxycodone-acetaminophen [Percocet] 2 tab PO Q4H PRN #30 tab 11/08/19 11/13/19 Rx acetaminophen [Tylenol] 325 mg PO QID PRN 11/13/19 11/13/19 History coQ10 (ubiquinol) 200 mg PO QAM 11/13/19 11/13/19 History meloxicam 15 mg PO QAM 11/13/19 11/13/19 History warfarin 4 mg PO QDD 11/13/19 11/13/19 History Past Med/Surg History Medical History GERD (gastroesophageal reflux disease) History of stomach ulcers Hyperlipidemia Osteoarthritis Surgical History History of arthroscopy of right shoulder Hx of colonoscopy Hx of tonsillectomy Hx of urethral stricture repair Status post total right knee replacement using cement Family History Other Cancer Heart disease Prostate cancer Vision abnormalities Social History Smoking Status: Never smoker Second Hand Exposure: No; Do You Dip or Chew Tobacco: No; Tobacco Cessation Education Requested by Patient: No Hx Alcohol Use: Yes Alcohol type: wine Hx Substance Use: No Preferred Language: Belarusian Communication Ability: Effective Hearing Ability: Normal 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 Beliefs That Will Affect Care: None marital status: Current Living Situation: Spouse current occupational status: employed Other Information That Helps Us Care for You: No Feels Safe at Home: Yes Safety Concerns: Feels Safe At This Time Review of Systems Review of Systems: All systems reviewed & are unremarkable except as noted in HPI & below Physical Exam Constitutional: WD/WN, vitals as above + acute distress and cooperative Eyes: EOM intact bilaterally; no conjunctival abnormality ENMT: external ear and nose normal, oropharynx normal Neck: trachea midline, no thyromegaly normal visual inspection Respiratory: normal respiratory effort, lungs clear to auscultation no respiratory distress Cardiovascular: Rate/Rhythm: + tachycardic and + irregularly irregular Heart Sounds: normal S1 and normal S2 Vessels: no JVD Extremities: no edema Gastrointestinal (Abdomen): Inspection/Auscultation: abdomen normal to inspection and normal bowel sounds; abdomen not distended Percussion/Palpation: abdomen soft; abdomen nontender, no guarding and abdomen not rigid Musculoskeletal: no cyanosis or clubbing, extremities motor strength 5/5 Skin: no rashes, warm and dry Neurologic: moves all extremities and awake Psychiatric: Orientation: alert, oriented to person and cooperative Results & Data Results & Data ([facility]) Vital Signs (Past 12 Hours) Vital Signs Temp Pulse Resp BP Pulse Ox 11/13/19 10:47 118 H 19 155/91 H 92 11/13/19 10:42 114 H 20 11/13/19 10:26 36.9 C 114 H 20 134/94 98 PG Care Time/CCT Total # of Minutes Spent Total Time Spent with Patient: Total time spent is greater than 50% in coordination of care (as documented) at patient's floor/unit and/or counseling patient: Coding Level of Care Code 43547 OBS Care - Level 3 Diagnoses Atrial fibrillation with RVR I48.91 Syncope R55 Elevated liver enzymes R74.8 GERD (gastroesophageal reflux disease) K21.9 Hyperlipidemia E78.5 Right knee DJD M17.11 DVT prophylaxis Z29.9
[2019-11-13] MEDS ORDERED: METOPROLOL TARTRATE 1 MG/ML VIAL IV PRN (13:35)
[2019-11-13] MEDS ORDERED: OXYCODONE/ACETAMINOPHEN 5mg/325mg TAB PO PRN (13:35)
[2019-11-13] MEDS ORDERED: ONDANSETRON INJ 2 MG/ML 2 ML VIAL IV PRN (13:35)
[2019-11-13] MEDS ORDERED: ACETAMINOPHEN 325 MG TAB PO PRN (13:35)
--- NOTE | 2019-11-13 14:33 | Progress Notes ---
DATE: 11/13/2019 ORTHOPEDIC PROGRESS NOTE SUBJECTIVE: The patient is well known to me. I asked him to come into the office this morning because he had a syncopal episode. During that time, it was noted that he was in atrial fibrillation. EKG, O2 sat, etc. were taken. Vitals were good. O2 sat was in the 90s. Pulse is in the 100s. EKG revealed no ischemic changes, but in AFib, was referred to his primary care physician who referred him to ER. As such he is here, admitted for observation. His INR is 5.2. We will treat appropriately with being held and then see where he is at in the next 24 hours. He will be on chronic anticoagulation from the knee standpoint for 6 weeks. Long-term anticoagulation based on cardiac issues could be determined by his adapted physical education specialist and his primary care physician. Wound today was clean and dry. Neurovascular check normal. Calves nontender. ASSESSMENT: Doing well from an orthopedic perspective, had new-onset atrial fibrillation with a syncopal episode, unclear whether it was related to that or to the fact that he had recently taken his pain medication and did his exercises creating pain and stress catecholamines. He is to requesting not to be on any other additional pain medication. We will discontinue his Percocet and just place on Tylenol 1000 mg p.o. q.6 hours p.r.n. Physical therapy and occupational therapy as previously noted. Hold Coumadin today. Check INR daily. Ultimate discharge plans and treatment per cardiology and hospitalist.nichole cristiana sockings. will order foot pumps while in bed. YASH
[2019-11-13] MEDS: METOPROLOL SUCC 25MG EXT REL TAB PO SCH (15:05)
--- NOTE | 2019-11-13 15:49 | XCELERA ---
[id number]
--- NOTE | 2019-11-13 17:29 | Cardiology Consultation ---
Date of Consultation November 13, 2019 Assessment & Plan (1) Syncope: The prodrome and associated symptoms encountered with his syncope are highly suggestive of increased vagal tone. He describes reflex syncope quite well. The exact trigger is unclear. Perhaps some pain from his exercises. Perhaps a transition to atrial fibrillation. Given his normal LV systolic function and the description of the symptoms I do not believe there is a more sinister etiology. The mainstay of treatment in the circumstances simply recognizing the prodrome and tracking the appropriate precautions in an attempt to either abort the episode or avoid injury. (2) Atrial fibrillation with RVR: No prior history of atrial fibrillation. While some element his EKG suggest atrial fibrillation, there does appear to be some regular atrial activity at times more consistent with atrial flutter. The exact duration of the atrial fibrillation is also unclear. Certainly he did not have atrial fibrillation at the time of his discharge 07 of November. However, his symptoms were fairly mild with respect to palpitations and he certainly could have had some atrial fibrillation leading up to this admission. While he is therapeutically anticoagulated at this point, still think there is some debate as to whether could have had atrial fibrillation prior to obtaining therapeutic levels of warfarin. His heart rates are somewhat elevated. However, he has few symptoms. There are several options with respect to treating the atrial fibrillation, I think the most expedient and efficacious treatment is simply cardioversion. I think he has a reasonable chance of converting spontaneously over the course of the evening. However, if he does not return to sinus rhythm I think we should make an effort tomorrow to perform a cardioversion. Would advocate a transesophageal echocardiogram prior to cardioversion to make sure that there is no left atrial thrombus and his overall risk of stroke is low. I discussed these procedures with him and we will plan on proceeding tomorrow in the event he continues to have his atrial arrhythmia. According to the patient he will be on anticoagulation for a few more weeks. His chads Vasc score is 1 which puts him at very low risk for thromboembolic events in the long-term. Given this single episode, do not believe he will require long-term systemic anticoagulation in the absence of additional risk factors. History of Present Illness Reason for Consultation: Atrial fibrillation Requesting Physician: Black Attending Physician: Darvin Cleaning MD History of Present Illness The patient is a 60-year-old gentleman without a known history of cardiac disease who underwent a right knee replacement on November 06. Operation appear to have been uncomplicated and he was discharged home on schedule. This morning he had an episode of syncope. Patient states that he had done his usual knee exercises and was in the process of taking a shower. Upon exiting the shower he began to feel somewhat warm, diaphoretic and nauseated. He called his who witnessed him lose consciousness for reportedly 1-3 minutes. Upon awakening the patient continued to feel nauseated and stated that he was quite diaphoretic for an extended period. However, over approximately 20-30 minutes he began to feel better. On the advice of his surgeon and he presented to the emergency room for evaluation. He was discovered to be in atrial fibrillation with an elevated ventricular rate. Patient did state that he had a sensation of an elevated heart rate at that time. This was not severe. 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 During these engagements he often times would notice an element of tachycardia. He has not used this recently per He also reported a symptom of some mild chest heaviness. This sensation appears a occur in the evening and it described as a need to take a deep breath. The symptoms are very mild in severity in do not limit his activity. He did not describe it as pain. There were no other associated symptoms. He otherwise claims to be an active individual. Even with his knee discomfort he reports walking and hiking. He did not report limiting symptoms associated with that activity outside of discomfort in the right knee. He does report a history of social wine drinking. States that he drinks perhaps 2 glasses of wine on a routine basis. He has not had any alcoholic beverages since his surgery a few days ago. Allergies Allergy/AdvReac Type Severity Reaction Status Date / Time tetracycline Allergy Mild Rash Verified 11/13/19 10:53 Home Medications Home Medications Medication Instructions Recorded Confirmed Type pantoprazole 40 mg PO QAM 10/02/19 11/13/19 History rosuvastatin 10 mg PO Q2D 10/02/19 11/13/19 History oxycodone-acetaminophen [Percocet] 2 tab PO Q4H PRN #30 tab 11/08/19 11/13/19 Rx acetaminophen [Tylenol] 325 mg PO QID PRN 11/13/19 11/13/19 History coQ10 (ubiquinol) 200 mg PO QAM 11/13/19 11/13/19 History meloxicam 15 mg PO QAM 11/13/19 11/13/19 History warfarin 4 mg PO QDD 11/13/19 11/13/19 History Patient History Medical History GERD (gastroesophageal reflux disease) History of stomach ulcers Hyperlipidemia Osteoarthritis Surgical History History of arthroscopy of right shoulder Hx of colonoscopy Hx of tonsillectomy Hx of urethral stricture repair Status post total right knee replacement using cement Family History Other Cancer Heart disease Prostate cancer Vision abnormalities Social History Smoking Status: Never smoker Second Hand Exposure: No; Do You Dip or Chew Tobacco: No; Tobacco Cessation Education Requested by Patient: No Hx Alcohol Use: Yes Alcohol type: wine Hx Substance Use: No Preferred Language: Belarusian Communication Ability: Effective Hearing Ability: Normal Camera Storage Clerk Required: No Beliefs That Will Affect Care: None marital status: Current Living Situation: Spouse current occupational status: employed Other Information That Helps Us Care for You: No Feels Safe at Home: Yes Safety Concerns: Feels Safe At This Time Review of Systems Review of Systems: All systems reviewed & are unremarkable except as noted in HPI & below Physical Exam Physical Exam: The patient is alert and oriented. Mood and affect appeared normal. He answered all questions appropriately. HEENT: Pupils are equal and reactive to light and accommodation. Extraocular movements are intact. The sclerae are anicteric. Neuro: Cranial nerves intact Neck: Patient's neck is supple. He has palpable carotid pulses bilaterally without bruits on auscultation. There is no evidence of jugular venous distention. The thyroid is not enlarged. Lungs: Clear to auscultation bilaterally. He has good air movement without use of accessory muscles. No rales wheezes or rhonchi. Cardiac: Heart demonstrates an irregular rate and rhythm. Normal S1 and S2. No murmurs on examination. Pulses: The patient has palpable radial pulses bilaterally that are equal in intensity Extremities: There was no evidence of hypoperfusion. There is no cyanosis or clubbing. There is no edema. Skin: I did not appreciate any rashes on examination today. Results & Data ([facility]) Vital Signs (Past 12 Hours) Vital Signs Temp Pulse Pulse Resp BP BP Pulse Ox 11/13/19 16:00 37.2 C 115 H 18 152/91 H 98 11/13/19 15:49 84 11/13/19 14:17 114 H 11/13/19 13:35 37.4 C 98 H 18 150/98 H 96 11/13/19 10:47 118 H 19 155/91 H 92 11/13/19 10:42 114 H 20 11/13/19 10:26 36.9 C 114 H 20 134/94 98 Laboratory Results Abnormal Lab Results 11/13/19 11/13/19 11/13/19 10:43 10:43 10:43 WBC 10.43 RBC 4.65 L Hgb 13.6 L Hct 41.7 L MCV 89.7 MCH 29.2 MCHC 32.6 RDW Std Deviation 41.9 RDW Coeff of Marito 12.7 Plt Count 314 MPV 10.1 Immature Gran % (Auto) 0.3 Neut % (Auto) 72.8 Lymph % (Auto) 16.5 Andrews % (Auto) 10.0 Eos % (Auto) 0.3 Baso % (Auto) 0.1 Neut # (Auto) 7.60 H Lymph # (Auto) 1.72 Andrews # (Auto) 1.04 H Eos # (Auto) 0.03 Baso # (Auto) 0.01 Immature Gran # (Auto) 0.03 H PT 51.8 H INR 5.4 H Sodium 143 Potassium 3.7 Chloride 107 Carbon Dioxide 29 Anion Gap 6.0 BUN 27 H Creatinine 0.86 Est Cr Clr Drug Dosing 90.7 Est GFR ( Amer) 103.3 Est GFR (Non-Af Amer) 89.1 BUN/Creatinine Ratio 31.4 H Glucose 116 H Calcium 9.4 Phosphorus 2.5 Magnesium 2.3 Total Bilirubin 0.7 AST 51 H ALT 114 H Alkaline Phosphatase 142 H Troponin I < 0.015 Total Protein 7.3 Albumin 3.3 L Globulin 4.0 Albumin/Globulin Ratio 0.8 L TSH 1.480 Diagnostic Findings Echocardiogram 10 today revealed preserved LV systolic function. Some mild calcification and thickness involving the posterior aspect of the mitral valve. No significant valvular lesions. Mild left atrial dilation. Obtained at the time of admission did reveal any active cardiopulmonary process. ECG Additional Comments: EKG obtained at the time admission revealed what appears to be in atrial flutter or possibly atrial fibrillation with nonspecific ST and T- wave changes. PG Care Time/CCT Total # of Minutes Spent Total Time Spent with Patient: Total time spent is greater than 50% in coordination of care (as documented) at patient's floor/unit and/or counseling patient: Coding Level of Care Code 69614 Initial Inpt Care Lvl 3 Diagnoses Syncope R55 Atrial fibrillation with RVR I48.91
--- NOTE | 2019-11-13 18:14 | Electrocardiogram Report ---
Test Reason : Blood Pressure : / mmHG Vent. Rate : 121 BPM Atrial Rate : 163 BPM P-R Int : 000 ms QRS Dur : 086 ms QT Int : 338 ms P-R-T Axes : 000 -18 008 degrees QTc Int : 479 ms Atrial fibrillation vs atrial flutter with rapid ventricular response Abnormal ECG When compared with ECG of 11-JUN-2005 11:00, Atrial fibrillation has replaced Sinus rhythm Vent. rate has increased BY 71 BPM Confirmed by Alexandr Campos ([id number]) on 11/13/2019 6:13:52 PM Referred By: Confirmed By:Alec Campos
[2019-11-13] MEDS: ACETAMINOPHEN 500 MG TAB PO PRN ×2 (18:26→23:59)
--- NOTE | 2019-11-14 06:58 | Progress Notes ---
DATE: 11/14/2019 SUBJECTIVE: The patient is resting comfortably in bed. He has been ambulatory. He states he is bored. He denies any real pain. He denies chest pain, shortness of breath, fever, chills, nausea, vomiting or headache. OBJECTIVE: Vital signs are stable. He is afebrile. O2 sat on room air is 100. Temperature is 37.1, respiratory rate 16, pulse is in the 70s. Still has episodes of atrial arrhythmia. Diastolic hypertension noted by primary care providers. Calves nontender. Wound dressing clean, dry, and intact. Neurovascular check, femoral sciatic nerve is normal. Can do a straight leg raise, ankle pumps, no problems. Flexion is about 70 degrees. ASSESSMENT AND PLAN: Overall doing reasonably well. Awaiting final determination of whether a cardioversion will be performed today. Follow peripherally while in the hospital. Will hopefully discharge today. Continue Coumadin. Keep INR roughly in 2 range for DVT/PE prophylaxis. For heart purposes, final recommendation of INR level per cardiology/hospitalist.
[2019-11-14 07:03] VITALS: TEMP 99
[2019-11-14 07:17] LABS: Hematocrit (blood only) 37.8 % (42-52); Hemoglobin 12.5 g/dL (14.0-18.0); Mean Corpuscular Hemoglobin 29.1 pg (25-34); Mean Corpuscular Hgb Conc 33.1 g/dL (32-36); Mean Corpuscular Volume 87.9 fL (80-100); Mean Platelet Volume 10.4 fL (7.4-10.4); Platelet Count 294 K/uL (130-400); RDW Coefficient of Variation 12.8 % (11.5-14.5); RDW Standard Deviation 41.1 fL (36.4-46.3); White Blood Count 11.38 K/uL (4.8-10.8)
[2019-11-14 07:35] LABS: INR 4.1 (0.9-1.1); Prothrombin Time 40.5 Seconds (9.0-12.0)
[2019-11-14 07:46] LABS: Alanine Aminotransferase 82 U/L (12-78); Albumin Level 2.8 gm/dl (3.4-5.0); Aspartate Aminotransferase 31 U/L (15-37); BUN Creatinine Ratio 32.5 (10-20); Blood Urea Nitrogen 20 mg/dl (7-18); Calcium 8.5 mg/dl (8.5-10.1); Carbon Dioxide 25 mmol/L (21-32); Chloride 109 mmol/L (98-107); Creatinine Clr Calc Pharmacy 127.7 ml/min; Est GFR (African American) 118.9; Est GFR (Non-African American) 102.6; Glucose 101 mg/dl (70-99); Magnesium 2.1 mg/dl (1.8-2.4); Potassium 3.3 mmol/L (3.5-5.1); Sodium 141 mmol/L (136-145)
[2019-11-14 07:50] LABS: Albumin Globulin Ratio 0.8 (0.9-2); Alkaline Phosphatase 126 U/L (45-117); Bilirubin,Total 0.8 mg/dl (0.2-1); Globulin 3.6 gm/dl (2.5-4.0); Total Protein 6.4 gm/dl (6.4-8.2); Troponin I < 0.015 ng/ml (0-0.045)
--- NOTE | 2019-11-14 08:53 | Hospitalist Progress Note ---
Date of Service November 14, 2019 Assessment & Plan (1) Atrial fibrillation with RVR: New onset with no prior history. TSH was normal in the ED. The patient does note he drinks 2-3 glasses of wine most evenings. He is not sure if the glasses are a standard 4.5 oz glass or slightly larger. No other noted symptoms to indicate another inciting factor. CHADs-Vasc of 1, giving him 0.6% stroke risk per year. - Echo preserved EF, slightly enlarged LA - Cardiology consulted - Trend troponins-> NEGATIVE X3 - Was given Toprol XL 25 mg on admission -> His rates in the ED are ~100 - 110 bpm, so he is already almost self-rate controlled. - Metoprolol IV for HR > 120 - Already on anticoagulation for DVT ppx with INR of 5.4. now 4.1, Holding warfarin at this time. (2) Syncope: Possibly vasovagal vs. an episode of RVR that reduced cerebral perfussion. No signs/symptoms of CVA or seizure. - Monitor on telemetry - Otherwise investigate as above (3) Elevated liver enzymes: AST/ALT were 51/114 on admission now with alk phos also going down to 126 - Trend (4) GERD (gastroesophageal reflux disease): Could have contributed to "heaviness" sensation he has felt the last 2 nights while lying down. - Continue PPI (5) Hyperlipidemia: - Continue statin (6) Right knee DJD: S/p right TKA with Dr. Stevenson on 11/06. No operative complications. - On warfarin for DVT ppx. INR presently4.1 (7) DVT prophylaxis: supratherapeutic INR, coumadin on hold Admission and Anticipated Discharge Date Admission Date: November 13, 2019 Results & Data Results & Data ([facility]) Vital Signs (Past 12 Hours) Vital Signs Temp Pulse Resp BP Pulse Ox 11/14/19 07:02 99.0 F 77 16 154/99 H 97 11/14/19 03:23 98.8 F 75 16 162/106 H 100 11/13/19 23:03 98.6 F 74 16 163/109 H 99 PG Care Time/CCT Total # of Minutes Spent Total Time Spent with Patient: Total time spent is greater than 50% in coordination of care (as documented) at patient's floor/unit and/or counseling patient: Coding Diagnoses Atrial fibrillation with RVR I48.91 Syncope R55 Elevated liver enzymes R74.8 GERD (gastroesophageal reflux disease) K21.9 Hyperlipidemia E78.5 Right knee DJD M17.11 DVT prophylaxis Z29.9
[2019-11-14] MEDS ORDERED: PANTOprazole 40 MG TAB PO SCH (09:00)
[2019-11-14] MEDS ORDERED: ROSUVASTATIN CALCIUM 10 MG TAB PO SCH (09:00)
[2019-11-14] MEDS: METOPROLOL SUCC 25MG EXT REL TAB PO SCH (10:51)
--- NOTE | 2019-11-14 13:20 | Anesthesiology Consultation ---
Date of Service November 14, 2019 Assessment & Plan Chart Review Chart Review: Acceptable Risk for Surgery and Patient NOT seen in Pre Admission Testing Consults Requested none ASA ASA4 Proposed Anesthesia Anesthesia Type: General and MAC History Surgery Operation Date: 11/14/19 12:00 Proposed Procedures p Echo Transesophageal - Kraig Campos MD s Cardioversion - Kraig Campos MD Height/Weight Height: 5 ft 7 in Weight: 95.6 kg Allergies Allergy/AdvReac Type Severity Reaction Status Date / Time tetracycline Allergy Mild Rash Verified 11/13/19 10:53 Medications Home Medications Medication Instructions Recorded Confirmed Last Taken pantoprazole 40 mg PO QAM 10/02/19 11/13/19 11/12/19 rosuvastatin 10 mg PO Q2D 10/02/19 11/13/19 11/12/19 oxycodone-acetaminophen [Percocet] 2 tab PO Q4H PRN #30 tab 11/08/19 11/13/19 11/13/19 04:30 1 tablet acetaminophen [Tylenol] 325 mg PO QID PRN 11/13/19 11/13/19 11/13/19 04:30 325 mg coQ10 (ubiquinol) 200 mg PO QAM 11/13/19 11/13/19 11/12/19 meloxicam 15 mg PO QAM 11/13/19 11/13/19 11/01/19 warfarin 4 mg PO QDD 11/13/19 11/13/19 11/12/19 17:30 4 mg Active Medications Generic Name Dose Route Start Last Admin Trade Name Freq PRN Reason Stop Dose Admin Acetaminophen 1,000 mg 11/13/19 13:56 11/13/19 23:59 Acetaminophen 500 Mg Tab PO 12/13/19 13:55 1,000 mg Q8H PRN Administration limit to max dose per 24hrs Metoprolol Succinate 25 mg 11/13/19 13:35 11/14/19 10:51 Metoprolol Succ 25mg Ext Rel Tab PO 12/13/19 13:34 Not Given QAM [facility] Pantoprazole Sodium 40 mg 11/14/19 09:00 11/14/19 10:51 Pantoprazole 40 Mg Tab PO 12/14/19 08:59 Not Given QAM [facility] Rosuvastatin Calcium 10 mg 11/14/19 09:00 11/14/19 10:51 Rosuvastatin Calcium 10 Mg Tab PO 12/14/19 08:59 Not Given QAM JEREMY NPO Date Last Intake of Fluids: 11/13/19 Time Last Intake of Fluids: 23:45 Date Last Intake of Solids: 11/13/19 Time Last Intake of Solids: 18:00 Past Medical History Medical History GERD (gastroesophageal reflux disease) History of stomach ulcers Hyperlipidemia Osteoarthritis Exercise / Class Metabolic Activity III < 4 Walking/Shop/Light housework Past Family History Family History Other Cancer Heart disease Prostate cancer Vision abnormalities Past Surgical History Surgical History History of arthroscopy of right shoulder Hx of colonoscopy Hx of tonsillectomy Hx of urethral stricture repair Status post total right knee replacement using cement Past Anesthesia History No Hx of Anesthesia Complications and No Family Hx of Anesthesia Complications History of PONV No Hx of PONV and No Hx of Motion Sickness Social History Smoking Status: Never smoker Do You Dip or Chew Tobacco: No Hx Alcohol Use: Yes Alcohol type: wine alcohol intake frequency: 3 or more drinks per day Hx Substance Use: No substance use type: does not use Physical Exam Vital Signs Last Vital Signs Temp 37.2 C 11/14/19 11:26 Pulse 151 H 11/14/19 11:26 Resp 20 11/14/19 11:26 BP 133/97 11/14/19 11:26 Pulse Ox 97 11/14/19 11:26 Testing Laboratory Results 11/14/19 06:38 11/14/19 06:38 PT 40.5 Seconds (9.0-12.0) H 11/14/19 06:38 INR 4.1 (0.9-1.1) H 11/14/19 06:38 Electrocardiogram Date: 11/13/19 Findings: + AFIB @ (at 121) Chest X-Ray Date: 11/13/19 Findings: + NAD and + atherosclerosis of thoracic aorta
[2019-11-14] MEDS ORDERED: PROPOFOL IV EMULSION 10 MG/ML 20 ML VIAL IV ONE (13:40)
[2019-11-14] MEDS ORDERED: BENZOCAIN/TETRACA/BUTAM SPRAY 200 APPLN/20 GM SPRY EXT ONE (13:44)
--- NOTE | 2019-11-14 13:54 | Anesthesiology Consultation ---
Date of Service November 14, 2019 Covid negative on 11/01/19. Rapid test pending. Assessment & Plan (1) Encounter for pre-operative examination: Chart Review Chart Review: Acceptable Risk for Surgery and Patient NOT seen in Pre Admission Testing Consults Requested none History Surgery Operation Date: 11/14/19 12:00 Proposed Procedures p Echo Transesophageal - Kraig Campos MD s Cardioversion - Kraig Campos MD Height/Weight Height: 5 ft 7 in Weight: 95.6 kg Allergies Allergy/AdvReac Type Severity Reaction Status Date / Time tetracycline Allergy Mild Rash Verified 11/13/19 10:53 Medications Home Medications Medication Instructions Recorded Confirmed Last Taken pantoprazole 40 mg PO QAM 10/02/19 11/13/19 11/12/19 rosuvastatin 10 mg PO Q2D 10/02/19 11/13/19 11/12/19 oxycodone-acetaminophen [Percocet] 2 tab PO Q4H PRN #30 tab 11/08/19 11/13/19 11/13/19 04:30 1 tablet acetaminophen [Tylenol] 325 mg PO QID PRN 11/13/19 11/13/19 11/13/19 04:30 325 mg coQ10 (ubiquinol) 200 mg PO QAM 11/13/19 11/13/19 11/12/19 meloxicam 15 mg PO QAM 11/13/19 11/13/19 11/01/19 warfarin 4 mg PO QDD 11/13/19 11/13/19 11/12/19 17:30 4 mg Active Medications Generic Name Dose Route Start Last Admin Trade Name Freq PRN Reason Stop Dose Admin Acetaminophen 1,000 mg 11/13/19 13:56 11/13/19 23:59 Acetaminophen 500 Mg Tab PO 12/13/19 13:55 1,000 mg Q8H PRN Administration limit to max dose per 24hrs Metoprolol Succinate 25 mg 11/13/19 13:35 11/14/19 10:51 Metoprolol Succ 25mg Ext Rel Tab PO 12/13/19 13:34 Not Given QAM [facility] Pantoprazole Sodium 40 mg 11/14/19 09:00 11/14/19 10:51 Pantoprazole 40 Mg Tab PO 12/14/19 08:59 Not Given QAM [facility] Rosuvastatin Calcium 10 mg 11/14/19 09:00 11/14/19 10:51 Rosuvastatin Calcium 10 Mg Tab PO 12/14/19 08:59 Not Given QAM JEREMY NPO Date Last Intake of Fluids: 11/13/19 Time Last Intake of Fluids: 23:45 Date Last Intake of Solids: 11/13/19 Time Last Intake of Solids: 18:00 Past Medical History Medical History Flutter-fibrillation GERD (gastroesophageal reflux disease) History of stomach ulcers Hyperlipidemia Osteoarthritis Past Family History Family History Other Cancer Heart disease Prostate cancer Vision abnormalities Past Surgical History Surgical History History of arthroscopy of right shoulder Hx of colonoscopy Hx of tonsillectomy Hx of urethral stricture repair Status post total right knee replacement using cement Social History Smoking Status: Never smoker Do You Dip or Chew Tobacco: No Hx Alcohol Use: Yes Alcohol type: wine alcohol intake frequency: 3 or more drinks per day Hx Substance Use: No substance use type: does not use Physical Exam Vital Signs Last Vital Signs Temp 37.2 C 11/14/19 11:26 Pulse 151 H 11/14/19 11:26 Resp 20 11/14/19 11:26 BP 133/97 11/14/19 11:26 Pulse Ox 97 11/14/19 11:26 Testing Laboratory Results 11/14/19 06:38 11/14/19 06:38 PT 40.5 Seconds (9.0-12.0) H 11/14/19 06:38 INR 4.1 (0.9-1.1) H 11/14/19 06:38 Electrocardiogram Date: 11/13/19 Findings: + AFIB @ (at 121) Chest X-Ray Date: 11/13/19 Findings: + NAD and + atherosclerosis of thoracic aorta Echocardiogram Date: 11/13/19 EF: 65 LV Function: normal Other Findings: + atrial enlargement (L dilation)
--- NOTE | 2019-11-14 14:40 | Cardioversion ---
Date of Service November 14, 2019 PG Electrical Cardioversion Rp Electrical Cardioversion Report Procedure performed: Cardioversion Indication: Patient is a 60-year-old gentleman who recently underwent a knee replacement and presented with symptoms of syncope and atrial flutter. Staff volunteer manager: Alexandr Campos MD Procedure in detail: The patient was informed of the risks benefits and alternatives to the intended procedure. He understood such which proceed. He was taken to the cardiac catheterization suite holding area. Immediately prior to the procedure the patient underwent a transesophageal echocardiogram which did not demonstrate any evidence of thrombus in the left atrial appendage. A general anesthetic was administered by the Anesthesiology Service. Once appropriately anesthetized, the patient was cardioverted using 50 joules delivered in a biphasic fashion. This returned the patient to sinus rhythm. The patient tolerated procedure well, there were no immediate complications. Patient was neurologically intact subsequent to the procedure. Impression: Successful cardioversion from atrial flutter to normal sinus rhythm Coding Level of Care Code Cardioversion, elective Additional Codes Electrical Cardioversion Report ([id number])
--- NOTE | 2019-11-14 14:52 | Anesthesiology Progress Note ---
Date of Service November 14, 2019 Anesthesia Post Procedure Vital Signs Vital Signs: Temp Pulse Pulse Pulse Pulse Resp BP 11/14/19 14:45 87 15 109/67 11/14/19 14:40 90 14 120/79 11/14/19 14:01 121 H 17 149/113 H 11/14/19 11:26 37.2 C 151 H 20 133/97 11/14/19 07:02 37.2 C 77 16 154/99 H 11/14/19 03:23 37.1 C 75 16 162/106 H 11/13/19 23:03 37.0 C 74 16 163/109 H 11/13/19 19:29 37.3 C 77 17 149/93 H 11/13/19 16:00 37.2 C 115 H 18 11/13/19 15:49 84 BP Pulse Ox 11/14/19 14:45 92 11/14/19 14:40 97 11/14/19 14:01 96 11/14/19 11:26 97 11/14/19 07:02 97 11/14/19 03:23 100 11/13/19 23:03 99 11/13/19 19:29 96 11/13/19 16:00 152/91 H 98 11/13/19 15:49 Transfer of Care Handoff Completed per policy Notes Mental Status: alert / awake / arousable Patient Amnestic to Procedure: Yes Nausea / Vomiting: adequately controlled Pain: adequately controlled Airway Patency, RR, SpO2: stable & adequate BP & HR: stable & adequate Hydration State: stable & adequate Anesthetic Complications: no major complications apparent and Pt Satisfied with anesthetic care Notes: The patient is awake and stable. He is back in normal sinus rhythm.
[2019-11-14 15:01] VITALS: O2SAT 96
--- NOTE | 2019-11-14 15:14 | Discharge Summary ---
Date of Service November 14, 2019 Admission HPI Per Admitting Provider 68yo M w/ hx of GERD and DJD who presents with new-onset atrial fibrillation. The patient had a right TKA with Dr. Stevenson on 11/07/2019. The procedure went well, and he was discharged home several days later. He was sent home on warfarin for DVT prophylaxis. The last 2 nights, Mr. Lundberg has noted a "heaviness" in his chest for approx. 30 minutes. This only occurs after he has laid down to go to bed and is drifting off to sleep. It has not come about with any of his exercises for his knee or other times of day. This morning, he did his leg exercises for his knee which he reports are "moderately" painful. He had a normal breakfast, and got into the shower. He notes he felt a bit hot and a bit tired during the shower. After getting out of the shower, he felt dizzy and nauseated. He sat down in his walker (which he is using due to his recent surgery) and called for his . With his present, he passed out for approx. 1-3 minutes. He did not fall out of his walker due to his holding him. He did not have any shaking, jaw/tongue movements, or other indications of seizure that his noted. After coming back to consciousness, he was essentially alert and oriented without confusion. He denies any chest pressure or palpitations during this episode or in the last few days. At present, he feels basically back to baseline. Principal Diagnosis Atrial flutter status post DC cardioversion with Dr. Campos after ROSALINDA assured no intracardiac thrombus were seen Discharge Exam Patient was seen in the morning prior to cardioversion he was without complaints at this point time he was still tachycardic but regular He was having no respiratory distress his lungs were clear extremities are without edema Mentally he was clear Discharge Data Allergies Allergy/AdvReac Type Severity Reaction Status Date / Time tetracycline Allergy Mild Rash Verified 11/13/19 10:53 Consultations 11/13/19 11:53 ED Decision to Admit Stat 11/13/19 13:35 Consult Cardiology Routine Procedures Performed Operation Date: 11/14/19 12:00 Actual Procedures s Cardioversion - Kraig Campos MD p Echo Transesophageal - Kraig Campos MD s Echo Color Flow - Kraig Campos MD Hospital Course (1) Atrial fibrillation with RVR: New onset with no prior history. TSH was normal in the ED. The patient does note he drinks 2-3 glasses of wine most evenings. He is not sure if the glasses are a standard 4.5 oz glass or slightly larger. No other noted symptoms to indicate another inciting factor. CHADs-Vasc of 1, giving him 0.6% stroke risk per year. - Echo preserved EF, slightly enlarged LA - Cardiology consulted ROSALINDA performed without intracardiac thrombus seen DC cardioversion performed successfully - Trend troponins-> NEGATIVE X3 - Was given Toprol XL 25 mg on admission -> His rates in the ED are ~100 - 110 bpm, so he is already almost self-rate controlled. -Radiology does not recommend any beta-blockers at time of discharge - Already on anticoagulation for DVT ppx with INR of 5.4. now 4.1, use warfarin by 1 mg continue for the ascribed time course per orthopedics patient will not need long-term anticoagulation as has low chads vASC score Patient will follow-up Dr. Silverio zuñiga from cardiology from [facility] (2) Syncope: Possibly vasovagal vs. an episode of RVR that reduced cerebral perfussion. No signs/symptoms of CVA or seizure. (3) Elevated liver enzymes: AST/ALT were 51/114 on admission now with alk phos also going down to 126 (4) GERD (gastroesophageal reflux disease): Could have contributed to "heaviness" sensation he has felt the last 2 nights while lying down. - Continue PPI (5) Hyperlipidemia: - Continue statin (6) Right knee DJD: S/p right TKA with Dr. Stevenson on 11/06. No operative complications. - On warfarin for DVT ppx. INR presently4.1 will recommend reducing dose by 1 mg continue to follow checking INR 11/15 with results to Mikal Chakraborty and Elva Total Time Total Time Spent Total Time Spent (In Minutes): It required greater than 30 minutes to prepare this patient for discharge Discharge Plan Discharge Items Patient Disposition: Home - Self-Care Reason For Visit: NEW AFIB W/RVR Discharge Diagnosis: aflutter s/p cardioversion Activity: Resume your previous activity Non-emergency contact: Primary Care Provider and Multiple Needle Stitcher Call non-emergency contact if: you have any medication questions and your symptoms worsen Follow-up/Referrals: Slick Ren [Primary Care Provider] - Silverio Limon DO [Physician] - Diet: Regular Ambulatory Orders: Prothrombin Time INR (Timed) Timeframe: 2 Days Location: Determined by Patient Ordered By: Lars Mendozatl Attending Provider Instructions: Please continue your anti coagulation as per Dr Stevenson's recommendations, reduce your dose by 1 mg please have your INR checked on wednesday 11/15 in the am ACTIVITY RECOMMENDATIONS: * May resume driving tomorrow. SPECIAL CARE: * May apply burn ointment for skin irritation. * Please contact physician for any lightheadedness, dizziness or palpitations. Pending Studies at Discharge: No Stand-Alone Forms: My [employer], Smoking Cessation Medications and DC Order Prescriptions: Continued acetaminophen [Tylenol] 325 mg Tablet 325 mg PO QID PRN (Reason: Pain) RF: 0 meloxicam 15 mg tablet 15 mg PO QAM RF: 0 coQ10 (ubiquinol) 200 mg Capsule 200 mg PO QAM RF: 0 pantoprazole 40 mg Tablet,Delayed Release (Dr/Ec) 40 mg PO QAM RF: 0 rosuvastatin 10 mg Tablet 10 mg PO Q2D RF: 0 oxycodone-acetaminophen [Percocet] 5-325 mg tablet 2 tab PO Q4H PRN (Reason: pain) Qty: 30 RF: 0 Changed warfarin 2 mg tablet 3 mg PO QDD Qty: 0 RF: 0 Discharge Orders: Discharge Order (Routine); Ordered 11/14/19 Ordered By: Lars Gallardo Admission Data Admit Date/Time: 11/13/19 12:32 Attending Provider: Lars Gallardo Admit Provider: Darvin Cleaning Primary Care Provider: Slick Ren Other Providers: Darvin Cleaning ; Kraig Campos Coding Level of Care Code D/C Day Management >30 mins Diagnoses Atrial fibrillation with RVR I48.91 Syncope R55 Elevated liver enzymes R74.8 GERD (gastroesophageal reflux disease) K21.9 Hyperlipidemia E78.5 Right knee DJD M17.11
[2019-11-14 15:16] VITALS: BP 152/91
[2019-11-14 15:48] VITALS: PULSE 83
--- NOTE | 2019-11-14 18:16 | XCELERA ---
[id number]
--- NOTE | 2019-11-14 19:17 | Electrocardiogram Report ---
Test Reason : Blood Pressure : / mmHG Vent. Rate : 079 BPM Atrial Rate : 079 BPM P-R Int : 152 ms QRS Dur : 092 ms QT Int : 392 ms P-R-T Axes : 000 -14 002 degrees QTc Int : 449 ms Atrial flutter When compared with ECG of 13-NOV-2019 10:36, Vent. rate has decreased BY 42 BPM Confirmed by Alexandr Campos ([id number]) on 11/14/2019 7:17:15 PM Referred By: Slick Ren Confirmed By:Alec Campos
--- NOTE | 2019-11-14 19:26 | Electrocardiogram Report ---
Test Reason : Blood Pressure : / mmHG Vent. Rate : 089 BPM Atrial Rate : 089 BPM P-R Int : 184 ms QRS Dur : 086 ms QT Int : 388 ms P-R-T Axes : 036 -20 000 degrees QTc Int : 472 ms Poor data quality, interpretation may be adversely affected Normal sinus rhythm with sinus arrhythmia Normal ECG When compared with ECG of 14-NOV-2019 07:00, (unconfirmed) Sinus rhythm has replaced atrial flutter Confirmed by Alexandr Campos ([id number]) on 11/14/2019 7:26:17 PM Referred By: Slick Ren Confirmed By:Alec Campos
== END 2019-11-14 16:16 | disposition home health service (06) ==
LOC: ED 10:23 → 2W 10:23 → SUATTDRO 12:32 → 2W 13:43